=== PATIENT | male | born 1965 | race Caucasian/White ===

== ENCOUNTER 2021-07-03 09:06 | Inpatient (IN) | payer MEDICAID ==
[2021-07-02 10:21] LABS: BASOPHILS % (AUTO) 0.6 % (0-1); EOSINOPHILS # (AUTO) 0.1 X10'3 (0-0.9); LYMPHOCYTES # (AUTO) 1.1 X10'3 (1.1-4.8); LYMPHOCYTES % (AUTO) 24.1 % (21-51); MEAN CORPUSCULAR HEMOGLOBIN 30.9 PG (27.0-31.0); MEAN CORPUSCULAR HGB CONC 33.8 g/dL (33.0-36.5); MEAN CORPUSCULAR VOLUME 91.4 FL (78-98); MEAN PLATELET VOLUME 7.8 FL (7.4-10.4); MONOCYTES # (AUTO) 0.5 X10'3 (0-0.9); MONOCYTES % (AUTO) 11.3 % (2-12); NEUTROPHILS # (AUTO) 2.9 X10'3 (1.8-7.7); PRE OP HEMATOCRIT 41.6 % (42.0-52.0); PRE OP HEMOGLOBIN 14.1 g/dL (14.0-17.9); PRE OP PLATELET COUNT 215 X10'3 (140-440); RED BLOOD COUNT 4.55 X10'6 (4.70-6.10); RED CELL DISTRIBUTION WIDTH 13.5 % (11.5-14.5)
[2021-07-02 10:51] LABS: ALBUMIN 3.8 G/DL (3.4-5.0); ALBUMIN/GLOBULIN RATIO 1.2 (1.1-1.5); ALKALINE PHOSPHATASE 112 IU/L (46-116); BLOOD UREA NITROGEN 20 MG/DL (7-18); BUN/CREATININE RATIO 16.8 (5.4-32.0); CALCIUM 8.6 MG/DL (8.5-10.1); CHLORIDE 107 MMOL/L (99-107); CREATININE 1.19 MG/DL (0.60-1.10); PRE OP ALT 30 U/L (30-65); PRE OP ANION GAP 10 (8-16); PRE OP AST 14 U/L (10-37); PRE OP BILIRUB, TOTAL 0.2 MG/DL (0.0-1.0); PRE OP GLUCOSE 121 MG/DL (70-104); PRE OP POTASSIUM 3.8 MMOL/L (3.4-5.1); PRE OP SODIUM 143 MMOL/L (135-145); TOTAL CARBON DIOXIDE 26.2 MMOL/L (24-32); TOTAL PROTEIN 6.9 G/DL (6.4-8.2); eGFR 64 ML/MIN
[2021-07-03] VITALS (21 sets, daily range): BP systolic 138–213; BP diastolic 86–119
[~2021-07-03] VITALS: Ht 182.9 cm; Wt 108.0 kg
[~2021-07-03 09:06] MED LIST: NO HOME MEDS; cefazolin/dext.iso 2gm/50ml IV ONE; famotidine 20mg tablet PO ONE; ringers solution, lacted 1,000 ML IV SCH
[2021-07-03] MEDS ORDERED: famotidine 20mg tablet PO ONE (10:40)
[2021-07-03] MEDS ORDERED: sevoflurane 250ml liquid IH ONE (13:51)
[2021-07-03] MEDS ORDERED: ketorolac trometh. 30mg/ml inj. ONE (13:51)
[2021-07-03] MEDS ORDERED: fentaNYL/PF 50MCG/1 ML 2ML syringe ONE ×2 (13:56→14:38)
[2021-07-03] MEDS ORDERED: midazolam 1 mg/ML 2ml injection ONE (13:56)
[2021-07-03] MEDS ORDERED: ondansetron/PF 4mg/2ml inj IV PRN ×2 (14:35→16:05)
[2021-07-03] MEDS ORDERED: proCHLORperazine 10 MG/2 ml inj IV PRN (14:35)
[2021-07-03] MEDS ORDERED: morphine 4 MG/ML inj SYRINge IV PRN (14:35)
[2021-07-03] MEDS ORDERED: morphine 2 MG/ML inj. syringe IV PRN (14:35)
[2021-07-03] MEDS ORDERED: ringers solution, lacted 1,000 ML IV SCH (14:35)
[2021-07-03] MEDS ORDERED: meperidine/PF 25mg/ml syringe IV PRN ×2 (14:35)
[2021-07-03] MEDS ORDERED: ROPIVAcaine 0.5% (5mg/ml) 30ml vial ONE (14:37)
[2021-07-03] MEDS ORDERED: dexamethasone sod phosphate 4mg/ml inj. ONE (14:37)
[2021-07-03] MEDS ORDERED: propofol inj 20 ML IV ONE (14:37)
[2021-07-03] MEDS ORDERED: LIDOcaine 1%/PF 5ML 10 MG/ML VIAL ONE (14:37)
[2021-07-03] MEDS ORDERED: rocuronium 10mg/ml inj IV ONE (14:37)
[2021-07-03] MEDS ORDERED: ondansetron/PF 4mg/2ml inj ONE (14:37)
[2021-07-03] MEDS ORDERED: ketamine 50mg/5ml syringe ONE (14:46)
--- NOTE | 2021-07-03 16:04 | NUR ---
Received from OR via surgical bed, accompanied by Anesthesiologist Kimberly and report given by Anesthesiolgist. VS WNL except slightly hypertensive, medicated with labetalol at bedside. Right knee dressed and wrapped with extesion brace on. Foot exposed, distal pulse palpable and good cap refill. 20G right wrist LR at 100cc/hr. SCDs on, no haley cath.
[2021-07-03] MEDS ORDERED: diphenhydrAMINE 25mg capsule PO PRN ×2 (16:05)
[2021-07-03] MEDS ORDERED: bisacodyl 10mg suppository rectal RC PRN (16:05)
[2021-07-03] MEDS ORDERED: magnesium hydroxide 30ml (MOM) UD suspension PO PRN (16:05)
[2021-07-03] MEDS ORDERED: oxyCODONE IR 5mg (immed. release) tablet PO PRN ×2 (16:05)
[2021-07-03] MEDS ORDERED: HYDROmorphone inj. 0.5 MG/0.5 ML DISP.SYRIN IV PRN (16:05)
[2021-07-03] MEDS ORDERED: HYDROmorphone 1 mg/ml syringe IV PRN (16:05)
[2021-07-03] MEDS ORDERED: acetaminophen 325mg tablet PO PRN (16:05)
[2021-07-03] MEDS ORDERED: labetalol 20mg/4ml (5mg/ml) syringe IV ONE (16:10)
[2021-07-03] MEDS ORDERED: acetaminophen 1,000mg/100ml IV 100 ML IV ONE (16:15)
[2021-07-03] MEDS ORDERED: ketorolac tromethamine 15mg/ml inj. ONE (16:20)
[2021-07-03] MEDS ORDERED: neostigmine methylsulfate 1 MG/ML 10ml vial ONE (16:24)
[2021-07-03] MEDS ORDERED: glycopyrrolate 0.2mg/ml inj ONE (16:24)
[2021-07-03] MEDS: meperidine/PF 25mg/ml syringe IV PRN ×2 (16:31→16:56)
--- NOTE | 2021-07-03 17:10 | NUR ---
Dr Rajan at bedside, vasotec ordered for hypertension which has not resolved despite pain resolving, now 2/10 will administer and monitor.
--- NOTE | 2021-07-03 17:15 | NUR ---
Report received from PRESCHOOL HEAD TEACHERJannie
[2021-07-03] MEDS: enalaprilat dihydrate 2.5mg/2ml vial IV PRN ×2 (17:33→17:42)
--- NOTE | 2021-07-03 17:40 | NUR ---
Called Dr Harris to inform him of progress with hypertension and he states to give hydralazine if needed/if hypertension worsens (no improving with 155/110) and states okay to go to the floor.
--- NOTE | 2021-07-03 17:54 | NUR ---
Report called to receiving nurse. Transferred via surgical bed. Belongings sent with patient along with chart. Special Issues communicated to receiving nurse Kristin RN. BLL call light within reach. Receiving nurse has been informed of new orders for hydralazine if needed.
[2021-07-03] MEDS ORDERED: hydrALAZINE 20mg/ml inj. IV ONE (17:55)
--- NOTE | 2021-07-03 18:00 | NUR ---
Patient in room [facility]. I have received report from VIDHI SY and had the opportunity to ask questions and assume patient care.
[2021-07-03] MEDS: potassium cl 20mEq in 1/2 NS 1,000 ML IV SCH ×2 (18:05→23:55)
--- NOTE | 2021-07-03 18:20 | NUR ---
Problems reprioritized. Patient report given, questions answered & plan of care reviewed with YOSSI Garcia.
[2021-07-03] MEDS ORDERED: sennosides 8.6mg tablet PO SCH (21:00)
[2021-07-03] MEDS: acetaminophen 325mg tablet PO SCH (21:19)
[2021-07-03] MEDS: ceFAZolin/D5W- 1GM premix 50 ML IV SCH (23:55)
[2021-07-04] VITALS: BP 158/91
[2021-07-04] MEDS: acetaminophen 325mg tablet PO SCH ×2 (02:00→09:13)
[2021-07-04 04:44] VITALS: BP 152/82
--- NOTE | 2021-07-04 06:10 | NUR ---
Patient in room [facility]. I have received report from YOSSI Garcia and had the opportunity to ask questions and assume patient care.
--- NOTE | 2021-07-04 06:21 | NUR ---
Problems reprioritized. Patient report given, questions answered & plan of care reviewed with VIDHI RN.
[2021-07-04 06:30] VITALS: BP 140/77
[2021-07-04 07:18] LABS: BASOPHILS % (AUTO) 0.2 % (0-1); EOSINOPHILS % (AUTO) 0 % (0-6); HEMOGLOBIN 13.7 g/dl (14.0-17.9); LYMPHOCYTES # (AUTO) 0.9 X10'3 (1.1-4.8); LYMPHOCYTES % (AUTO) 8.1 % (21-51); MEAN CORPUSCULAR HEMOGLOBIN 30.8 PG (27.0-31.0); MEAN CORPUSCULAR HGB CONC 33.5 g/dL (33.0-36.5); MEAN CORPUSCULAR VOLUME 91.8 FL (78-98); MEAN PLATELET VOLUME 7.6 FL (7.4-10.4); MONOCYTES # (AUTO) 0.7 X10'3 (0-0.9); MONOCYTES % (AUTO) 6.2 % (2-12); NEUTROPHILS # (AUTO) 9.4 X10'3 (1.8-7.7); NEUTROPHILS % (AUTO) 85.5 % (42-75); PLATELET COUNT 251 X10'3 (140-440); RED BLOOD COUNT 4.47 X10'6 (4.70-6.10); RED CELL DISTRIBUTION WIDTH 13.5 % (11.5-14.5)
[2021-07-04 07:57] LABS: ANION GAP 10 (8-16); CHLORIDE 104 MMOL/L (99-107); POTASSIUM 4.7 MMOL/L (3.5-5.1); SODIUM 143 MMOL/L (135-145); TOTAL CARBON DIOXIDE 29.1 MMOL/L (24-32)
[2021-07-04] MEDS ORDERED: aspirin 325mg tablet PO SCH (08:30)
[2021-07-04] MEDS: potassium cl 20mEq in 1/2 NS 1,000 ML IV SCH (09:13)
[2021-07-04] MEDS: ceFAZolin/D5W- 1GM premix 50 ML IV SCH (09:13)
[2021-07-04 11:00] VITALS: BP 139/75
--- NOTE | 2021-07-04 12:25 | NUR ---
DC inst provided to pt & pt's . IV DC'd, tip intact. All belongings sent w/pt. WC to vehicle.
[2021-07-05] MEDS ORDERED: acetaminophen 325mg tablet PO PRN (16:05)
== END 2021-07-04 12:26 | disposition home or self-care (01) | DRG 317 ==
LOC: PAS IN 09:54 → SUR 3N 18:05
PROVIDERS: ADMIT Orthopaedic Surgery; ATTEND Orthopaedic Surgery
PROC: 3E0T3BZ Introduction of Anesthetic Agent into Peripheral Nerves and Plexi, Percutaneous Approach (ICD-10-PCS; 2021-07-03)
PROC: 3E0T33Z Introduction of Anti-inflammatory into Peripheral Nerves and Plexi, Percutaneous Approach (ICD-10-PCS; 2021-07-03)
PROC: 0KNQ0ZZ Release Right Upper Leg Muscle, Open Approach (ICD-10-PCS; principal; 2021-07-03 13:51)
DX: S76.111A Strain of right quadriceps muscle, fascia and tendon, initial encounter (principal); E66.9 Obesity, unspecified; G47.33 Obstructive sleep apnea (adult) (pediatric); Z68.32 Body mass index [BMI] 32.0-32.9, adult
CPT/HCPCS: 36415; 80051; 80053; 82948; 85025; 87635; 97116; 97161; 97530; A4618; A6258; A6449; A7000; C1713; G0378; J0131; J0690; J1100; J1885; J2175; J2250; J2405; J2704; J2710; J2795; J3010; J3480; J3490; J7120; L1832